=== PATIENT | male | born 1990 | race Native Hawaiian/Other Pacific Islander ===

== ENCOUNTER 2022-05-30 10:55 | Emergency (ER) | payer OTHER, SELFPAY ==
[2022-05-30 11:20] VITALS: BP 169/96; PULSE 83; RESP 18; TEMP 36.4; O2SAT 99; BMI 32.8
--- NOTE | 2022-05-30 12:54 | ED_ITS ---
HPI - Psych General Chief Complaint: Psychiatric Problem/Disorder Stated Complaint: Mental health, anxiety attacks Time Seen by Provider: 05/30/22 10:58 History of Present Illness HPI Narrative: This 31-year-old male comes in reporting increasing anxiety symptoms. He states that he has always had some anxiety but has been able to manage but recently things are significantly worse. He states that he has tried exercise, prayer, and meditation but yet has significant anxiety. Sometimes this is affecting his sleep. He denies having any audio or visual hallucinations. He denies having any thoughts or plans of suicide. He has never harmed himself or made any such attempt in the past. He states that he was on Celexa years ago any did not care for how it made him feel. He states that he began to have very unsettling thoughts while on that medicine. He states that he has been at times using alcohol, marijuana, and even cocaine on occasion to treat his anxiety. He knows that this is not helpful and is seeking help here today. Related Data Home Medications Medication Instructions Recorded Confirmed terbinafine HCl 250 mg tablet mg 05/30/22 Previous Rx's Medication Instructions Recorded lorazepam 0.5 mg tablet (Ativan) 0.5 mg PO BID PRN #20 tab 05/30/22 sertraline 50 mg tablet (Zoloft) 50 mg PO DAILY #30 tab 05/30/22 Allergies Allergy/AdvReac Type Severity Reaction Status Date / Time vicodin Allergy Intermediate hive Uncoded 05/30/22 11:20 Review of Systems Status of ROS: Reports: 10 or more systems reviewed and unremarkable except as noted in History and below Narrative: Constitutional: No fevers, no weight gain or loss. Eyes: No discharge. No vision changes. HENT: No congestion, no sore throat, no ear pain. Cardiovascular: No chest pain, no palpitations. Respiratory: No shortness of breath, no wheezes, no cough. Gastrointestinal: No abdominal pain, no vomiting, no diarrhea. Genitourinary: No dysuria, no hematuria. Musculoskeletal: Normal range of motion. Skin: No rashes, no pruritis. Neurological: No dizziness, weakness, sensory change, speech change. Endo/Heme/Allergies: No bruising or bleeding. No polydipsia. Pysch: no suicidality. Anxiety symptoms. Occasional insomnia. All other systems reviewed and are negative. PFSH PFSH Social History Smoking Status: Former smoker Do you use any of these nicotine containing products: None Second hand tobacco smoke exposure: Yes How often do you have a drink containing alcohol: 4 or more times a week How many standard drinks containing alcohol do you have on a typical day: 7 to 9 How often do you have six or more drinks on one occasion: Daily or almost daily AUDIT-C Alcohol total score: 11 Non-prescribed substance use: marijuana (any form) and crack/cocaine Non-prescribed substance use details: lightly. last used this am marijuana. cocaine saturday service: No Exam Narrative: Exam Narrative: Constitutional: Well-developed, well-nourished, no acute distress. HEENT: Normocephalic, atraumatic. Neck: Normal range of motion. Nontender. Supple. Heart: Regular. No murmurs. Normal rate. Intact distal pulses. Lungs: Clear to auscultation. No chest discomfort. No wheezes, rhonchi, or rales. Abdomen: Normal bowel sounds. Nontender. No rebound tenderness. Genitalia: Deferred. Back: No midline tenderness. Normal range of motion. Extremities: Normal range of motion. No injury. Skin: Intact. No rash. Warm. No erythema or pallor. Neurologic: No altered sensation. No weakness. Alert and oriented. Psychiatric: No suicidality. Increasing anxiety. Some symptoms of depression. No suicidality. Nursing notes and vitals signs are reviewed. Const: Vital Signs, click to edit/add: Vital Signs - 24 hr 05/30/22 11:20 Temperature 97.6 F Pulse Rate [Right Pulse Oximeter] 83 Respiratory Rate 18 Blood Pressure [Ri ght Upper Arm] 169/96 H Pulse Oximetry 99 Course Vital Signs Vital signs: Initial Vital Signs Temperature 97.6 F 05/30/22 11:20 Temperature Source Temporal Artery Scan 05/30/22 11:20 Pulse Rate 83 05/30/22 11:20 Respiratory Rate 18 05/30/22 11:20 Blood Pressure 169/96 H 05/30/22 11:20 Blood Pressure Mean 120 05/30/22 11:20 Blood Pressure Position Sitting 05/30/22 11:20 Pulse Oximetry 99 05/30/22 11:20 Oxygen Delivery Method 05/30/22 11:20 Vital Signs Temperature 97.6 F 05/30/22 11:20 Pulse Rate 83 07/13/22 11:20 Respiratory Rate 18 05/30/22 11:20 Blood Pressure 169/96 H 05/30/22 11:20 Pulse Oximetry 99 05/30/22 11:20 Temperature 97.6 F 05/30/22 11:20 Pulse Rate 83 05/30/22 11:20 Respiratory Rate 18 05/30/22 11:20 Blood Pressure 169/96 H 05/30/22 11:20 Pulse Oximetry 99 05/30/22 11:20 MDM - Psych MDM Narrative Medical decision making narrative: This patient comes in reporting increasing anxiety and is seeking help to treat this. He is currently not taking any medications. He has been turning to some street drugs and alcohol on occasion because of his anxiety. He does not have any intent or thoughts of suicide and has never entertained such. He received a mg of Ativan today orally. I did discuss the role of a mental health assessment but indicated that he is not showing signs and symptoms that would need inpatient placement. He is in agreement with a plan to start some medication to attend to his anxiety symptoms. I did prescribe Zoloft 50 mg daily and advised him to follow-up with his primary physician in 2-3 weeks. He did also receive a prescription for some tablets of Ativan 0.5 mg. He understands that this is not a good long-term plan for treating anxiety but can function as a bridging strategy until his anti depressant, antianxiety medicine kicks in. Discharge Plan Discharge Clinical Impression: Depression, Acute anxiety Patient Disposition: Home, Self-Care Condition: Stable Instructions: Anxiety (ED) Additional Instructions: Take medication as prescribed. Follow up with primary physician in 2-3 weeks for re-evaluation. Return if worsening symptoms occur. Prescriptions: New sertraline [Zoloft] 50 mg tablet 50 mg PO DAILY Qty: 30 2RF lorazepam [Ativan] 0.5 mg tablet 0.5 mg PO BID PRNQty: 20 0RF No Action terbinafine HCl 250 mg tablet 0RF Follow Up/Referrals: Mike Samayoa MD [Primary Care Provider] - Stand Alone Forms: [employer] Info Instructions
--- NOTE | 2022-05-30 15:51 | ED.NURSE ---
dr haider was informed that he had left to get rx for ativan and dose in ed was not given. dr haider cancelled order verbally.
== END 2022-05-30 13:10 | disposition home or self-care (01) ==
PROVIDERS: Emergency Provider Emergency Medicine Emergency Medical Services; PCP Family Medicine
DX: F41.8 Other specified anxiety disorders (principal)
CPT/HCPCS: 99284

== ENCOUNTER 2022-08-31 16:45 | Outpatient (CLI) | payer OTHER, SELFPAY ==
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
[2022-08-31 23:01] LABS: Chlamydia DNA Amplified* NOT DETECTED (No Detected); GC DNA Amplified* NOT DETECTED (No Detected)
== END 2022-08-31 16:46 | disposition home or self-care (01) ==
PROVIDERS: PCP Family Medicine; Visit Provider Registered Nurse
DX: Z11.3 Encounter for screening for infections with a predominantly sexual mode of transmission (principal)
CPT/HCPCS: 87491; 87591

== ENCOUNTER 2024-11-30 10:27 | Outpatient (CLI) | payer BC, SELFPAY | END 2024-11-30 10:28 | disposition home or self-care (01) | PROVIDERS: PCP Family Medicine; Visit Provider Family Medicine | DX: F10.11 Alcohol abuse, in remission (principal); R35.89 Other polyuria; R53.83 Other fatigue; Z13.220 Encounter for screening for lipoid disorders | CPT/HCPCS: 80048; 80061; 80076; 84443; 85025 ==

== ENCOUNTER 2025-02-13 12:14 | Emergency (ER) | payer BC, SELFPAY ==
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
[2025-02-13 12:33] VITALS: BP 161/93; PULSE 86; RESP 18; TEMP 37.4; O2SAT 100; BMI 33.7
--- NOTE | 2025-02-13 12:51 | CRLHL7_ITS ---
For Patients: As a result of the Century Cures Act, medical imaging exams and procedure reports are released immediately into your electronic medical record. You may view this report before your referring provider. If you have questions, please contact your health care provider. INDICATION: Shortness of breath, Rib chest pain TECHNIQUE: Chest radiograph 2 views COMPARISON: None FINDINGS: The sensitivity and specificity of the exam are moderately limited by the patient`s body habitus. Mediastinum: The mediastinum is normal in appearance. The heart silhouette is normal in size and morphology. Lung: Both lungs are unremarkable in appearance with small lung volumes. No sign of pleural effusion seen. No pneumothorax is identified. Bone and Soft tissue: Unremarkable for age. IMPRESSIONS: 1. No acute cardiopulmonary disease is seen. 2. If there is a high clinical index of suspicion for rib injury, dedicated rib series radiographs are recommended. Dictated by Chuckie Williamson MD @ 02/13/2025 1:04:37 PM Dictated by: Chuckie Williamson MD @ 02/13/2025 13:04:39 (Electronically Signed)
--- NOTE | 2025-02-13 12:55 | ED_ITS ---
HPI - General Adult General Chief complaint: Rib Pain Stated complaint: L sided rib cage pain Time Seen by Provider: 02/13/25 12:45 Source: patient Mode of arrival: ambulatory Limitations: no limitations History of Present Illness HPI narrative: 34-year-old male, history of diabetes type 2 and generalized anxiety disorder presenting today with left-sided chest wall pain that developed last night. Pain is located the lower left chest wall does not radiate. He describes as very sharp. Worse we takes a deep breath. Worse with certain movements. Generally constant. Takes his breath away when he feels that sharp sensation. He denies fevers or chills. He has not been coughing. He denies trauma to the area. He denies any workouts or heavy lifting. No traveling. He does smoke cigarettes. He denies vaping. Related Data Home Medications ?Medication ?Instructions ?Recorded ?Confirmed omeprazole 20 mg capsule,delayed 20 mg PO DAILY PRN 03/19/24 02/13/25 release Previous Rx's ?Medication ?Instructions ?Recorded metformin 500 mg tablet,extended See Rx Instructions PO QDAY #120 12/01/24 release 24 hr tabs terbinafine HCl 250 mg tablet 250 mg PO DAILY #7 tabs 12/01/24 zolpidem 10 mg tablet 10 mg PO QHS PRN insomnia #30 tabs 12/01/24 Blood Glucose Meter #1 ea 12/02/24 Diabetic Test Strips #100 ea 12/02/24 lancets (Accu-Chek Softclix #100 ea 12/11/24 Lancets) lorazepam 1 mg tablet 1 mg PO BID PRN anxiety #30 tabs 02/05/25 ketorolac 10 mg tablet 10 mg PO TID PRN pain 5 days #15 02/13/25 tabs Allergies Allergy/AdvReac Type Severity Reaction Status Date / Time hydrocodone Allergy Severe Hives Verified 02/13/25 12:42 Review of Systems Status of ROS: Reports: 10 or more systems reviewed and unremarkable except as noted in History and below [facility] Medical History Type 2 diabetes mellitus, without long-term current use of insulin ?E11.9 - Type 2 diabetes mellitus without complications (ICD-10) Insomnia ?G47.00 - Insomnia, unspecified (ICD-10) Onychomycosis ?B35.1 - Tinea unguium (ICD-10) Closed nondisplaced fracture of distal pole of scaphoid bone of left wrist (03/19/18) ?S62.015A - Nondisplaced fracture of distal pole of navicular [scaphoid] bone of left wrist, initial encounter for closed fracture (ICD-10) JENNIFFER (generalized anxiety disorder) ?F41.1 - Generalized anxiety disorder (ICD-10) Surgical History History of ankle surgery ?Z98.890 - Other specified postprocedural states (ICD-10) History of third molar tooth extraction ?K08.409 - Partial loss of teeth, unspecified cause, unspecified class (ICD- 10) History of circumcision ?Z98.890 - Other specified postprocedural states (ICD-10) Family History Family/Other Type 2 diabetes mellitus Mother Diabetes Maternal Grandfather Diabetes Maternal Grandmother Diabetes Social History Narrative: , 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, kitchen supervisor Andresalfredo Sesar, smoker, former daily marleny bryant, former marijuana smoker Smoking Status: Former smoker Do you use any of these nicotine containing products: None Second hand tobacco smoke exposure: Yes How often do you have a drink containing alcohol: 4 or more times a week How many standard drinks containing alcohol do you have on a typical day: 7 to 9 How often do you have six or more drinks on one occasion: Daily or almost daily AUDIT-C Alcohol total score: 11 Non-prescribed substance use: marijuana (any form) and crack/cocaine Non-prescribed substance use details: lightly. last used this am marijuana. cocaine saturday service: No Exam Narrative: Exam Narrative: Well-nourished well-developed patient , uncomfortable. Alert and oriented. Answers questions appropriately. Mood and affect are appropriate. Thoughts are goal oriented and rational. No tangential or magical thinking noted. Patient speaks in full sentences without needing to catch his breath. HEENT: Normocephalic atraumatic. Pupils are equally round reactive to light. Extraocular muscles are intact. Conjunctivae are moist without any icterus noted. Moist mucous membranes. Cardiovascular: Heart is regular rate and rhythm S1 and S2 are present without any murmurs. Lungs: Clear to auscultation bilaterally no wheezes rhonchi or rales are appreciated. Cannot take a deep breath without discomfort. Breath catches midway and patient yells in pain. No tenderness over the ribs. No CVA tenderness. Abdomen: Soft and nondistended with normal bowel sounds. He does not have left upper quadrant discomfort. Extremities: Bilateral lower extremities are without edema. Skin: Well perfused without any obvious rashes. Multiple tattoos. Const: Vital Signs, click to edit/add: Vital Signs - 24 hr 02/13/25 12:33 Temperature 99.3 F Pulse Rate [Pulse Oximeter] 86 Respiratory Rate 18 Blood Pressure [Ri ght Upper Arm] 161/93 H Pulse Oximetry 100 Oxygen Delivery Me thod Room Air Course Course ED Course: Differential diagnosis at this time includes a pneumothorax, pneumonia, PE, musculoskeletal discomfort. With no history of trauma and no left upper quadra nt pain do not think this represents intra-abdominal injury such as splenic injury. Proceeded with a chest x-ray which was unremarkable. Lab work unremarkable. Toradol IM given in the ED today. Vital Signs Vital signs: Initial Vital Signs Temperature 99.3 F 02/13/25 12:33 Temperature Source Temporal Artery Scan 02/13/25 12:33 Pulse Rate 86 02/13/25 12:33 Respiratory Rate 18 02/13/25 12:33 Blood Pressure 161/93 H 02/13/25 12:33 Blood Pressure Mean 115 H 02/13/25 12:33 Blood Pressure Position Sitting 02/13/25 12:33 Pulse Oximetry 100 02/13/25 12:33 Oxygen Delivery Method Room Air 02/13/25 12:33 Vital Signs Temperature 99.3 F 02/13/25 12:33 Pulse Rate 86 02/13/25 12:33 Respiratory Rate 18 02/13/25 12:33 Blood Pressure 161/93 H 02/13/25 12:33 Pulse Oximetry 100 02/13/25 12:33 Oxygen Delivery Method Room Air 02/13/25 12:33 Temperature 99.3 F 02/13/25 12:33 Pulse Rate 86 02/13/25 12:33 Respiratory Rate 18 02/13/25 12:33 Blood Pressure 161/93 H 02/13/25 12:33 Pulse Oximetry 100 02/13/25 12:33 Oxygen Delivery Method Room Air 02/13/25 12:33 Medical Decision Making MDM Narrative Medical decision making narrative: 34-year-old male with chest wall pain, likely musculoskeletal in nature. Lab Data Lab results reviewed: Yes I reviewed the patient's lab results Labs: Lab Results 02/13/25 02/13/25 Range/Units 13:10 13:15 WBC 6.29 (4.50-11.00) K/uL RBC 5.43 (4.30-5.90) m/uL Hgb 16.6 (13.5-17.5) gm/dL Hct 48.1 (37.0-53.0) % MCV 89 (80-100) fL MCH 31 (26-34) pg MCHC 35 (32-36) gm/dL RDW Coeff of [place] 12.5 (11.5-15.5) % Plt Count 282 (140-440) K/uL Neut % (Auto) 44.7 (42.0-72.0) % Lymph % (Auto) 45.0 H (20-44) % [place] % (Auto) 6.7 (0.0-11.0) % Eos % (Auto) 3.3 (0.0-7.0) % Baso % (Auto) 0.3 (0.0-3.0) % Neut # (Auto) 2.81 (1.7-7.0) K/uL Lymph # (Auto) 2.80 (0.90-2.90) K/uL [place] # (Auto) 0.40 (0.00-0.90) K/UL Eos # (Auto) 0.21 (0.00-0.50) K/uL Baso # (Auto) 0.02 (0.00-0.30) K/uL Abs Immat Gran (auto) 0.00 (0.00-0.30) K/uL Imm/Tot Granulo (auto) 0.0 % D-Dimer Quant (PE/DVT) 0.28 (0.00-0.50) ug/ml Sodium 142 (135-149) mmol/L Potassium 4.2 (3.6-5.1) mmol/L Chloride 103 (96-114) mmol/L Carbon Dioxide 27 (20-32) mmol/L Anion Gap 12 (7-15) mEq/L BUN 14 (5-24) mg/dL Creatinine 0.6 (0.5-1.5) mg/dL Estimated Creat Clear 182.50 Estimated GFR 132 ml/min Glucose 141 H (60-115) mg/dL Lactate 1.8 (0.5-1.9) mmol/L Calcium 10.3 (8.4-10.6) mg/dL C-Reactive Protein < 0.5 L (0.5-1.0) mg/dL Lipase 84 (23-300) U/L SARS-CoV-2 (PCR) Negative SARS-CoV-2 (Negative) Influenza Type A (PCR) Negative PCR FLU A (Negative) Influenza Type B (PCR) Negative PCR FLU B (Negative) RSV (PCR) Negative PCR RSV (Negative) Imaging Data Chest x-ray: Attestation: I have reviewed the pertinent imaging results. Radiologist's impression: TECHNIQUE: Chest radiograph 2 views COMPARISON: None FINDINGS: The sensitivity and specificity of the exam are moderately limited by the patient`s body habitus. Mediastinum: The mediastinum is normal in appearance. The heart silhouette is normal in size and morphology. Lung: Both lungs are unremarkable in appearance with small lung volumes. No sign of pleural effusion seen. No pneumothorax is identified. Bone and Soft tissue: Unremarkable for age. IMPRESSIONS: 1. No acute cardiopulmonary disease is seen. 2. If there is a high clinical index of suspicion for rib injury, dedicated rib series radiographs are recommended. Discharge Plan Discharge Clinical Impression: Acute chest wall pain Patient Disposition: Home, Self-Care Condition: Stable Additional Instructions: Take Toradol as needed/as directed, take with food. Okay to use heat or ice to the sore area, do not apply heat or ice directly to the skin, do not apply for more than 20 minutes at a time. Return to the ER if you develop worsening pain, difficulty breathing, fevers or vomiting. Prescriptions: New ketorolac 10 mg tablet 10 mg PO TID PRN (Reason: pain) 5 Days Qty: 15 0RF No Action omeprazole 20 mg capsule,delayed release(DR/EC) 20 mg PO DAILY PRN zolpidem 10 mg tablet 10 mg PO QHS PRN (Reason: insomnia) Qty: 30 5RF terbinafine HCl 250 mg tablet 250 mg PO DAILY Qty: 7 5RF Rx Instructions: 1 QD x 7 days, repeat monthly x 6 months metformin 500 mg tablet extended release 24 hr See Rx Instructions PO QDAY Qty: 120 1RF Rx Instructions: 2 QD x 2 weeks, then 3 QD x 2 weeks, then 4 QD (DME) Blood Glucose Meter Misc See Rx Instructions .ROUTE .MEDSUPPLY Qty: 1 0RF Rx Instructions: Whatever is covered by insurance (DME) Diabetic Test Strips Misc See Rx Instructions .ROUTE .MEDSUPPLY Qty: 100 3RF Rx Instructions: BID (DME) lancets [Accu-Chek Softclix Lancets] Misc See Rx Instructions .Route Qty: 100 3RF Rx Instructions: test blood sugars BID lorazepam 1 mg tablet 1 mg PO BID PRN (Reason: anxiety) Qty: 30 0RF Follow Up/Referrals: Mike Samayoa MD [Primary Care Provider] - Stand Alone [facility] Info Inst[facility]
--- OUTSIDE RECORDS SUMMARY | 2025-02-13 13:00 | XMS_ITS | Clinical Summary ---
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 [place] [address], from Last 3 Months or Most Recently Relevant to Health Maintenance Insurance MEDICAID [facility] Advance Directives * Full Code (Latest Code Status on File) Date Activated Date Inactivated Comments 03/26/2018 12:52 AM 03/29/2018 9:26 PM Question Answer Comments Code Status Discussion: Discussed * Full Code Date Activated Date Inactivated Comments 11/09/2008 10:02 AM 11/09/2008 5:26 PM Care Teams Contribution Solicitor Relationship Specialty Start Date End Date Pcp, No . PCP - General 12/29/15
[2025-02-13 13:20] LABS: Lactate* 1.8 mmol/L (0.5-1.9)
[2025-02-13 13:22] LABS: Basophils Absolute Auto 0.02 K/uL (0.00-0.30); Basophils Percent Auto 0.3 % (0.0-3.0); Eosinophils Absolute Auto 0.21 K/uL (0.00-0.50); Eosinophils Percent Auto 3.3 % (0.0-7.0); Hematocrit 48.1 % (37.0-53.0); Hemoglobin* 16.6 gm/dL (13.5-17.5); Mean Corpuscular HGB Conc 35 gm/dL (32-36); Mean Corpuscular Hemoglobin 31 pg (26-34); Mean Corpuscular Volume 89 fL (80-100); Monocytes Percent Auto 6.7 % (0.0-11.0); Neutrophils Absolute Auto 2.81 K/uL (1.7-7.0); Neutrophils Percent Auto 44.7 % (42.0-72.0); Platelet Count* 282 K/uL (140-440); RDW Coefficient of Variation % 12.5 % (11.5-15.5); Red Blood Count 5.43 m/uL (4.30-5.90); White Blood Count* 6.29 K/uL (4.50-11.00)
[2025-02-13 13:33] LABS: Slide Review Reflex No
[2025-02-13 13:35] LABS: Chloride* 103 mmol/L (96-114); Potassium* 4.2 mmol/L (3.6-5.1); Sodium* 142 mmol/L (135-149)
[2025-02-13 13:38] LABS: Blood Urea Nitrogen* 14 mg/dL (5-24); Creatinine* 0.6 mg/dL (0.5-1.5); Estimated Glomerular Filt Rate 132 ml/min; Lipase* 84 U/L (23-300)
[2025-02-13 13:39] LABS: Anion Gap 12 mEq/L (7-15); Calcium* 10.3 mg/dL (8.4-10.6); Carbon Dioxide* 27 mmol/L (20-32); Glucose* 141 mg/dL (60-115)
[2025-02-13 13:41] LABS: D Dimer Quantitative* 0.28 ug/ml (0.00-0.50)
[2025-02-13 13:45] LABS: C Reactive Protein* < 0.5 mg/dL (0.5-1.0)
[2025-02-13 14:00] LABS: PCR FLU A Negative PCR FLU A (Negative); PCR FLU B Negative PCR FLU B (Negative); PCR RSV Negative PCR RSV (Negative); SARS PCR* Negative SARS-CoV-2 (Negative)
[2025-02-13] MEDS: KETOROLAC 30 MG/ML inj IVP (14:27)
[2025-02-13 14:31] VITALS: BP 135/90; PULSE 83; RESP 16; O2SAT 97
== END 2025-02-13 14:42 | disposition home or self-care (01) ==
PROVIDERS: Emergency Provider Family Medicine; PCP Family Medicine
DX: R07.89 Other chest pain (principal)
CPT/HCPCS: 36415; 71046; 80048; 83605; 83690; 85025; 85379; 86140; 87631; 96372; 99284; J1885

== ENCOUNTER 2025-09-07 16:46 | Outpatient (CLI) | payer OTHER, SELFPAY | END 2025-09-07 16:47 | disposition home or self-care (01) | LOC: NFLDREF 09-15 03:19 | PROVIDERS: PCP Family Medicine; Referring Provider Family Medicine; Visit Provider Family Medicine | DX: E11.9 Type 2 diabetes mellitus without complications (principal) | CPT/HCPCS: 82043; 82570 ==